=== PATIENT | male | born 1945 | race Caucasian/White ===

== ENCOUNTER → 2020-04-10 | Outpatient (CLI) | payer MEDICARE, OTHER ==
[~2020-04-10] MED LIST: COUMADIN2 MG PO; COUMADIN4 MG PO; CREON DR 24,001 EACH PO; CRESTOR5 MG PO; GLIPIZIDE XL2.5 MG PO; GLUCOPHAGE1000 MG PO; KEPPRA750 MG PO; PANTOPRAZOLE SO40 MG PO; TOPROL XL50 MG PO
== END ==
LOC: CT 04-09 09:00
DX: K22.70 Barrett's esophagus without dysplasia (principal); K44.9 Diaphragmatic hernia without obstruction or gangrene; K86.1 Other chronic pancreatitis; K76.9 Liver disease, unspecified
CPT/HCPCS: 36415; 74170; 82565; Q9967

== ENCOUNTER → 2021-04-22 | Outpatient (CLI) | payer MEDICARE, OTHER | LOC: CT 07:47 | DX: K76.89 Other specified diseases of liver (principal); K76.9 Liver disease, unspecified | CPT/HCPCS: 36415; 74170; 82565; Q9967 ==

== ENCOUNTER → 2021-05-21 | Day surgery (SDC) | payer MEDICARE, OTHER ==
[~2021-05-21] MED LIST changes: +FOLIC ACID1 MG PO; +JARDIANCE10 MG PO; +LOVENOX60 MG/0.6 SC; +METHOTREXATE T2.5 MG PO; +PREDNISONE10 MG PO
== END | disposition home or self-care (01) ==
LOC: OR 06:03
DX: Z12.11 Encounter for screening for malignant neoplasm of colon (principal); D12.4 Benign neoplasm of descending colon; K63.5 Polyp of colon; K57.30 Diverticulosis of large intestine without perforation or abscess without bleeding; K22.70 Barrett's esophagus without dysplasia; K21.00 Gastro-esophageal reflux disease with esophagitis, without bleeding; K64.0 First degree hemorrhoids; K64.4 Residual hemorrhoidal skin tags; K76.89 Other specified diseases of liver; K44.9 Diaphragmatic hernia without obstruction or gangrene; K86.1 Other chronic pancreatitis; D68.32 Hemorrhagic disorder due to extrinsic circulating anticoagulants; I10 Essential (primary) hypertension; E11.9 Type 2 diabetes mellitus without complications; E78.5 Hyperlipidemia, unspecified; Z95.2 Presence of prosthetic heart valve; Z86.010 Personal history of colon polyps; Z80.0 Family history of malignant neoplasm of digestive organs; Z88.8 Allergy status to other drugs, medicaments and biological substances; Z79.84 Long term (current) use of oral hypoglycemic drugs; Z79.01 Long term (current) use of anticoagulants; Z79.899 Other long term (current) drug therapy; Z20.822 Contact with and (suspected) exposure to COVID-19
CPT/HCPCS: 82962; J2704; J7040